=== PATIENT | female | born 1975 | race African-American/Black ===

== ENCOUNTER 2020-05-13 16:45 | Emergency (ER) | payer MEDICAID ==
[~2020-05-13] VITALS: Ht 167.6 cm; Wt 93.0 kg
[~2020-05-13 16:45] MED LIST: ALBU18; BACL10TA; FLUT100M7; TRIA25CA
[2020-05-13 18:58] VITALS: BP 138/88
[2020-05-13] MEDS ORDERED: methylPREDNISolone SOD SUCC 125 MG/2 ML VL IM ONE (19:15)
[2020-05-13] MEDS ORDERED: KETOROLAC TROMETH 60MG/2ML VIAL IM ONE (19:15)
== END 2020-05-13 20:12 | disposition home or self-care (01) ==
LOC: ER 16:45
DX: M79.89 Other specified soft tissue disorders (principal); F17.210 Nicotine dependence, cigarettes, uncomplicated; I10 Essential (primary) hypertension; Z79.899 Other long term (current) drug therapy
CPT/HCPCS: 73610; 73630; 96372; 99284; J1885; J2930